=== PATIENT | male | born 1980 | race African-American/Black ===

== ENCOUNTER 2023-01-01 08:30 | Emergency (ER) | payer SELFPAY ==
[~2023-01-01] VITALS: Ht 177.8 cm; Wt 81.0 kg
[2023-01-01 08:32] VITALS: BP 149/82; PULSE 53; RESP 20; TEMP 98.5; O2SAT 98
== END 2023-01-01 12:28 | disposition left against medical advice (07) ==
LOC: ER 08:30
DX: S61.212A Laceration without foreign body of right middle finger without damage to nail, initial encounter (principal); W26.8XXA Contact with other sharp object(s), not elsewhere classified, initial encounter; Y93.89 Activity, other specified; Y92.89 Other specified places as the place of occurrence of the external cause; Y99.8 Other external cause status
CPT/HCPCS: 99281